=== PATIENT | female | born 1945 | race Caucasian/White ===

== ENCOUNTER 2017-06-12 17:42 | Inpatient (IN) | payer MEDICARE ==
[~2017-06-12] VITALS: Ht 162.6 cm; Wt 118.0 kg
[2017-06-12 18:22] VITALS: BP 168/81; PULSE 96; RESP 18; O2SAT 96
[2017-06-12 19:25] LABS: BASOPHILS % (AUTO) 0.2 % (0-3); EOSINOPHILS % (AUTO) 0.8 % (0-5); MONOCYTES % (AUTO) 5.4 % (4-12); Mean Corpuscular Volume 87.1 fL (81-100); NEUTROPHILS % (AUTO) 84.1 % (40-74); Platelet Count 164 bil/L (150-400)
--- NOTE | 2017-06-12 19:28 | ED.REPORT ---
HPI-Abd Pain F 40 and Over Date of Service Jun 12, 2017 ED Provider: Boo Caceres MD Patient is a 72 year old female who presents to the ED complaining of right lower quadrant abdominal pain onset two days ago. Associated symptoms include decreased appetite, an episode of diarrhea that started today and nausea last night that has since resolved. She denies vomiting, dysuria or hematochezia. Patient states that the pain is exacerbated when she walks. The patient reports that she was referred to the ED from the due to hematuria. Nursing Notes Stated Complaint: ABDOMINAL PAIN Chief Complaint: Female Abdominal Pain Nursing Notes Reviewed: Yes Allergies: Coded Allergies: Contrast Media (Verified Allergy, Mild, [place], 06/12/17) Patient not sure, but thought from IV contrast for kidney scan. Scheduled PRN Aspirin (Aspirin) 81 Mg Tablet 81 MG PO DAILY PRN PRN For Pain General Time Seen by MD: 19:27 Chief Complaint Abdominal pain Hx Obtained From: Patient Arrived By: Walk-in Sudden in Onset?: Yes Onset Occurred: 2 days ago Symptom Duration: Since onset Location: : RLQ Quality: Painful Severity: Current: Moderate Recent Healthcare: No recent doctor visit, No recent hospitalization Past Medical History Past Medical History none reported Past Surgical History Reports: Tubal ligation Smoking History Unknown if Ever Smoker Social History Other Social History: Good social support Ambulatory Status Independent Review of Systems +decreased appetite Constitutional: Denies: Chills, Fever Respiratory: Denies: Non-productive cough, Shortness of breath GI: Reports: Abdominal pain, Diarrhea, Nausea, Denies: Hematochezia, Vomiting Female: Reports: Hematuria, Denies: Dysuria, Flank pain Complete sys rev & neg: except as marked. Skin: Denies Itching, Denies Rash Physical Exam Vital Signs Vital Signs (First) Date Time Temp Pulse Resp B/P Pulse Ox O2 Delivery O2 Flow Rate FiO2 06/12/17 18:22 37.4 96 18 168/81 96 Room Air Initial VS: Reviewed General/Constitutional: Awake, Alert Respiratory / Chest: Atraumatic, Breath sounds NL, Breath sounds = bilat, No respiratory distress Cardiovascular: Heart rate NL, Regular rhythm, Heart sounds NL, No gallop, No murmurs, No rubs Abdomen: Atraumatic, Soft, No guarding, No rebound, No distention Tenderness/Guarding/Rebound: Positive: Tender RLQ... Back: Atraumatic, Non-tender no percussion flank tenderness Head / Eyes: Atraumatic, Normocephalic, PERRL, EOMI Skin: Atraumatic, Color NL, No rash, Warm, Dry Neurologic: Oriented X3, Speech NL Upper Extremity / MS: Atraumatic, Full range of motion Lower Extremity / Pelvis / MS: Atraumatic, No swelling Psychiatric: Affect NL, Mood NL Interpretation & Diagnostics Lab Results Interpretation Result Diagram: 06/12/17191906/12/171919 Test 06/12/17 19:20 White Blood Count 12.0th/mm3 (3.8-10.1) Red Blood Count 4.82mil/mm3 (3.90-5.20) Hemoglobin 14.0g/dL (12.0-15.6) Hematocrit 42.0% (35.0-46.0) Mean Corpuscular Volume 87.1fL (81-100) Mean Corpuscular Hemoglobin 29.0pg (27.0-35.0) Mean Corpuscular Hemoglobin Concent 33.3% (32.0-37.0) Red Cell Distribution Width 14.9% (12.3-15.4) Platelet Count 164bil/L (150-400) Neutrophils (%) (Auto) 84.1% (40-74) Lymphocytes (%) (Auto) 9.3% (14-46) Monocytes (%) (Auto) 5.4% (4-12) Eosinophils (%) (Auto) 0.8% (0-5) Basophils (%) (Auto) 0.2% (0-3) Sodium Level 136mEq/L (134-144) Potassium Level 3.8mEq/L (3.5-5.2) Chloride Level 99mEq/L (97-108) Carbon Dioxide Level 20mmol/L (18-29) Blood Urea Nitrogen 11mg/dL (8-27) Creatinine 0.67mg/dL (0.57-1.00) Estimat Glomerular Filtration Rate 124mL/min (>59) Glucose Level 105mg/dL (60-99) Calcium Level 9.2mg/dL (8.5-10.1) Magnesium Level 1.9mg/dL (1.6-2.6) Total Bilirubin 1.1mg/dL (0.0-1.2) Aspartate Amino Transf (AST/SGOT) 14U/L (0-50) Alanine Aminotransferase (ALT/SGPT) 11U/L (0-32) Alkaline Phosphatase 91U/L (25-165) Total Protein 7.6g/dL (6.4-8.4) Albumin 3.7g/dL (3.4-5.0) Lipase 14U/L (13-60) Hold Mendez Top Tube Received (Received) CT Abd / Pelvis Interpretation IMPRESSION: 1. Acute appendicitis with appendicolith at the base of the appendix. No pneumoperitoneum to suggest perforation. No abscess or phlegmon. This finding was discussed with Dr. Caceres 18 p.m. on 06/12/17. 2. Sigmoid colon diverticulosis. No findings to suggest acute diverticulitis. 3. Cholelithiasis. No findings to suggest choledocholithiasis or acute cholecystitis. 4. Large hiatal hernia. Dictated by: Esthela Woodard M.D. on 06/12/2017 at 20:13 Approved by: Esthela Woodard M.D. on 06/12/2017 at 20:19 Interpretation / Wet Read by: Interpret - Radiologist, Discussed w radiologist Re-Eval/Medical Decision Med Decision/Clinical Course In summary, the patient is a 72-year-old female who presents with right lower quadrant pain, nausea and decreased appetite. Here in the emergency department the patient is afebrile with stable vital signs and reproducible right lower quadrant tenderness with palpation. The patient was made nothing by mouth and treated with the below medications: IVF, Zofran, Dilaudid, LR 100mls/hour Labs: CBC: leukocytosis of 12.0 CMP unremarkable Lipase within normal limits Abdomen CT: 1. Acute appendicitis with appendicolith at the base of the appendix. No pneumoperitoneum to suggest perforation. No abscess or phlegmon. 2. Sigmoid colon diverticulosis. No findings to suggest acute diverticulitis. 3. Cholelithiasis. No findings to suggest choledocholithiasis or acute cholecystitis. 4. Large hiatal hernia. The above findings were discussed with surgery Dr. Abreu who accepted the patient for operative management. The patient remained stable and in no apparent distress. Per my discussion with Dr. Abreu antibiotics will be ordered and initiated by himself. Patient remained stable and in no apparent distress and was accepted for further management in stable condition. Re-Evaluation/Progress : Time of Eval: 20:15 Re-Evaluation/Progress Note: Discussed plan for admit. Patient understands and agrees to plan. All questions were addressed. Consultation : Referral / Consult Name: Lj Abreu MD Consulted With: Surgeon Call Returned at: 20:30 Rubber Goods Inspector: Agrees with eval, Agrees with plan, Accepts admit Counseled Regarding: Diagnosis, Lab results, Need for admission Discharge & Departure Primary Impression: Acute appendicitis Acute appendicitis type: unspecified acute appendicitis type Qualified Code: K35.80 - Unspecified acute appendicitis Additional Impressions: Right lower quadrant pain Nausea Leukocytosis Leukocytosis type: unspecified Qualified Code: D72.829 - Elevated white blood cell count, unspecified Disposition: ADMITTED TO HOSPITAL Discharge Condition All VS Reviewed: Yes Condition: Stable Referrals: Tracey Nascimento MD (PCP) Kailaibgoldie Attestation Portions of this note were transcribed by Fartun Fofana. I, Dr. Caceres personally performed the history, physical exam and medical decision-making; I reviewed and confirmed the accuracy of the information in the transcribed note. Signed by: Kristen Cagle, 06/12/17 copies to: Tracey Nascimento MD, Beck O MD Jun 12, 2017 19:28 Luci Fofana Jun 12, 2017 19:41
[2017-06-12] MEDS ORDERED: 0.9% Sodium Chloride 1,000 ML IV ONE (19:38)
[2017-06-12] MEDS ORDERED: HYDROmorphone 0.5 mg/0.5 mL iSecure Syringe IVPUSH PRN (19:40)
[2017-06-12] MEDS ORDERED: Ondansetron 2 mg/mL 2 mL Inj IVPUSH ONE (19:40)
[2017-06-12 19:45] LABS: Magnesium 1.9 mg/dL (1.6-2.6)
[2017-06-12] MEDS: Lactated Ringer's 1,000 ML IV SCH (20:20)
--- NOTE | 2017-06-12 20:20 | DRSVH ---
PROCEDURE: CT ABDOMEN AND PELVIS WITHOUT CONTRAST ([id number]) INDICATIONS: rlq pain TECHNIQUE: Noncontrast 5 mm thick sections acquired from the diaphragms to the symphysis. 5 mm coronal and sagi ttal reformats were then performed. For radiation dose reduction, the following was used: automated exposure control, adjustment of mA and/or kV according to patient size. COMPARISON: None. FINDINGS: Image quality: Excellent. ABDOMEN: Lung bases: Lung bases are clear. Heart size is normal. There is a large hiatal hernia which conta ins mesenteric fat and the proximal half of the stomach. Solid organs: Liver and spleen are normal in size. There are multiple calcified gallstones in the ga llbladder fundus, the largest of which measures 1.8 cm in diameter. No gallbladder wall thickening or pericholecystic fluid. The body of the pancreas demonstrates fatty atrophy. No adrenal nodules. Kid neys are normal in size, without hydronephrosis or nephrolithiasis. Peritoneum and bowel: Unenhanced bowel loops demonstrate normal wall thickness and caliber. The appe ndix is thick walled. An appendicolith is present at the base (series 2, image 63). There is periappe ndiceal fluid and fat stranding. No pneumoperitoneum. No organized abscess or phlegmon. There is exte nsive sigmoid colon diverticulosis. No discrete mucosal thickening to suggest acute diverticulitis. N o free fluid or air. Nodes and vessels: No retroperitoneal or mesenteric adenopathy by size criteria. Aorta and inferior vena cava are normal in caliber. Miscellaneous: No ventral hernias. PELVIS: Genitourinary: Bladder wall thickness is normal. Uterus and ovaries are grossly unremarkable. Miscellaneous: No inguinal hernias or adenopathy. Bones: No suspicious bony lesions. No vertebral body compression fractures. IMPRESSION: 1. Acute appendicitis with appendicolith at the base of the appendix. No pneumoperitoneum to suggest perforation. No abscess or phlegmon. This finding was discussed with Dr. Caceres 18 p.m. on 06/12/17. 2. Sigmoid colon diverticulosis. No findings to suggest acute diverticulitis. 3. Cholelithiasis. No findings to suggest choledocholithiasis or acute cholecystitis. 4. Large hiatal hernia. Dictated by: Esthela Woodard M.D. on 06/12/2017 at 20:13 Approved by: Esthela Woodard M.D. on 06/12/2017 at 20:19
[2017-06-12] MEDS ORDERED: Ampicillin-Sulbactam Inj 3,000 MG in 0.9% Sodium Chloride 100 ML IV ONE (21:05)
[2017-06-12 21:45] VITALS: BP 122/41; PULSE 95; RESP 18; O2SAT 94
[2017-06-12 22:48] VITALS: BP 128/80; PULSE 95; RESP 18; O2SAT 94
--- NOTE | 2017-06-12 22:49 | NUR ---
Admit Pt arrived onto unit from ED after report from Orlando Cam RN and was able to ambulate from rney to bed without SOB. Pain 4/10 in lower abdomen. A&O x 3. Awaiting surgery this evening. Lung sounds clear. No nausea, SOB, or chest pain present. Oriented to room, call light, TV, etc. All needs met at this time. Frequent rounding continues.
[2017-06-12] MEDS ORDERED: ASPI-973 PO (22:57)
[2017-06-12] MEDS ORDERED: Lactated Ringer's 1,000 ML IV SCH (23:36)
[2017-06-12] MEDS ORDERED: Lactated Ringer's 500 ML IV PRN (23:36)
[2017-06-12] MEDS ORDERED: hydrALAZINE 20 mg/mL Inj IVPUSH PRN (23:40)
[2017-06-12] MEDS ORDERED: Labetalol 5 mg/mL 20 mL Inj IV PRN (23:40)
[2017-06-12] MEDS ORDERED: EPHEDrine Sulfate 50 mg/mL Inj IVPUSH PRN (23:40)
[2017-06-12] MEDS ORDERED: HYDROmorphone 1 mg/mL Inj IVPUSH PRN (23:40)
[2017-06-12] MEDS ORDERED: fentaNYL-PF 50 mCg/mL 2 mL Inj IVPUSH PRN (23:40)
[2017-06-12] MEDS ORDERED: Ondansetron 2 mg/mL 2 mL Inj IVPUSH PRN (23:40)
[2017-06-12] MEDS ORDERED: Phenylephrine 10,000 mCg/mL Inj IVPUSH PRN (23:40)
[2017-06-12] MEDS ORDERED: Atropine 0.4 mg/mL Inj IVPUSH PRN (23:40)
[2017-06-12] MEDS ORDERED: MetoCLOpramide 5 mg/mL 2 mL Inj IVPUSH PRN (23:40)
--- NOTE | 2017-06-12 23:42 | NUR ---
PT off unit Pt taken to OR approx 2342 for appy. Family staying in patient room for when she returns.
--- NOTE | 2017-06-12 23:47 | HP ---
[address] [address] HISTORY AND PHYSICAL PATIENT: JANNIE MALAGON : 1945 MR#: [id number] ADMIT: 06/12/2017 JOB ID: [id number] CHIEF COMPLAINT AND IDENTIFICATION: A 72-year-old woman with probable appendicitis. HISTORY OF PRESENT ILLNESS: Patient has had two days of right lower quadrant pain with increasing pain, decreased appetite, some loose stool and nausea but no vomiting. She has been reported to have microscopic hematuria. PAST MEDICAL HISTORY: 1. Tubal ligation. 2. Obesity. MEDICATIONS: Daily aspirin. She also notes she has taken several additional 81 mg aspirin today due to pain. ALLERGIES: IV CONTRAST DYE. SOCIAL HISTORY: Negative tobacco. Negative daily alcohol. She lives with her . She is seen in the emergency department with multiple family members. FAMILY HISTORY: Noncontributory. REVIEW OF SYSTEMS: Negative per Dr. Caceres's report. PHYSICAL EXAMINATION: BMI is 44. Vital signs are recorded in the chart, within normal limits except for one oral temperature of 38. Initial blood pressure was high at 168/81, but her most recent blood pressure was 120/80. Pulses have been in the 90s. Room air saturation is 94% to 96%. Her sclerae are clear. Neck is supple. Lungs are clear. Heart sounds are regular. Abdomen is soft with some mild right lower quadrant tenderness to palpation. Rectal/pelvic is not performed. Extremities without edema. LABORATORIES: Show white count 12, hematocrit of 42. Chemistries normal. Glucose is 105. LFTs and lipase are normal. IMAGING: I reviewed her abdominal CT and I concur with the report findings consistent with acute appendicitis with an appendicolith, asymptomatic diverticulosis, cholelithiasis and hiatal hernia. IMPRESSION AND PLAN: Probable appendicitis. I have recommended that we move ahead with a laparoscopic appendectomy tonight. She is amenable to proceeding after informed consent. We will do that tonight.
[2017-06-12 23:50] LABS: APPEARANCE,URINE CLOUDY (CLEAR,HAZY); COLOR,URINE ORANGE (YELLOW); OCCULT BLOOD,URINE LARGE (NEGATIVE); UROBILINOGEN,URINE 8 mg/dL (NORMAL)
[2017-06-12] MEDS ORDERED: Glycopyrrolate 0.2 MG/ML 1mL Inj ONE (23:55)
[2017-06-12] MEDS ORDERED: Dexamethasone 4 mg/mL Inj ONE (23:55)
[2017-06-12] MEDS ORDERED: Phenylephrine 10,000 mCg/mL Inj ONE (23:55)
[2017-06-12] MEDS ORDERED: Rocuronium 10 mg/mL 5 mL Inj ONE (23:55)
[2017-06-12] MEDS ORDERED: Propofol 10 mg/mL 20 mL Inj ONE (23:55)
[2017-06-12] MEDS ORDERED: fentaNYL-PF 50 mCg/mL 20 mL Inj ONE (23:55)
[2017-06-12] MEDS ORDERED: Ondansetron 2 mg/mL 2 mL Inj ONE (23:55)
[2017-06-12] MEDS ORDERED: Neostigmine 1 mg/mL 10 mL Inj ONE (23:55)
[2017-06-13] VITALS (13 sets, daily range): BP systolic 99–147; BP diastolic 56–89; PULSE 69–95; RESP 13–25; O2SAT 92–98
[2017-06-13] MEDS ORDERED: Bupivacaine-MPF 0.5% 30 mL Inj INFILTRATE ONE (00:29)
[2017-06-13] MEDS: Lactated Ringer's 1,000 ML IV SCH ×5 (00:30→16:20)
--- NOTE | 2017-06-13 00:59 | PCM.ANEP1 ---
Post Anesthesia PACU Phase 1 Assessment Date of Service: Jun 13, 2017 Vital Signs 36.4 115/58 91 21 97% FM Anesthetic Administered: GA Level of Alertness: Sleeping, hard to arouse BARRERA's with Equal Strength: Yes Pain: No Nausea or Vomiting: No CV Function & Hydration Stable: Yes Airway Device: Oxygen Delivery: Simple Mask Lungs: Clear to Auscultation PACU Phase 2 Assessment Complications: No Follow up Care: N/A Patient Instructions Provided: N/A Alex Farmer MD Jun 13, 2017 00:59
[2017-06-13] MEDS ORDERED: HYDROmorphone 0.5 mg/0.5 mL iSecure Syringe IV PRN (01:00)
[2017-06-13] MEDS ORDERED: Ondansetron 2 mg/mL 2 mL Inj IVPUSH PRN (01:00)
[2017-06-13] MEDS ORDERED: diphenhydrAMINE 25 mg Capsule PO PRN (01:00)
[2017-06-13] MEDS: Acetaminophen IV 1,000 MG in IV Premix 1 EACH IV PRN ×3 (02:40→16:35)
--- NOTE | 2017-06-13 02:40 | OP ---
[address] [address] OPERATIVE REPORT PATIENT: JANNIE MALAGON : 1945 MR#: [id number] ADMIT: 06/12/2017 JOB ID: [id number] DATE OF SURGERY: 06/13/2017 PREOPERATIVE DIAGNOSIS(ES): Acute appendicitis. POSTOPERATIVE DIAGNOSIS(ES): Acute appendicitis with perforation. PROCEDURE: Laparoscopic appendectomy for perforated appendicitis. SURGEON: Lj Abreu MD. TRAFFIC CONTROL OFFICER: Florian Renteria PA-C. INDICATIONS: A 72-year-old female with a body mass index of 45, presents with signs and symptoms consistent with appendicitis. She is brought to the operating room for laparoscopic appendectomy. FINDINGS: 1. commercial assistant was medically necessary due to the patient's morbid obesity and age for efficient and safe performance of surgery. 2. The patient had perforated appendicitis as described below. PROCEDURE: The patient was brought to the operating room. General anesthetic was administered. SCOAP protocol was followed. She received perioperative Augmentin. Surgical time-out was performed. The abdomen was prepped and draped in sterile fashion. We obtained access with an optical trocar inserted directly into the abdomen, followed by insufflation. The abdomen was surveyed. 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 We placed two additional ports, including placing the 12 mm stapler port in the upper abdomen within the rectus sheath. I took down some of the congenital adhesions to the right colon and then we attacked the area that appeared to be a fold of Treitz that was sealed over some purulent material. We suctioned out the purulent material to avoid diffuse spillage. We found a small appendicolith that had come out through the appendix wall into the peritoneal cavity. This confirmed the diagnosis of perforated appendicitis. We suctioned that out. We now proceeded to the bluntly mobilize the appendix and created a window at the base of the appendix which was relatively soft. We fired the stapler across this with a blue load and then performed a retrograde appendectomy taking down the mesoappendix bluntly and with cautery fairly midway between the appendix and the origin of the mesoappendix. This was done in a safe fashion so that we would not injure any structures in the retroperitoneum, nor disrupt the wall of the appendix. The specimen was freed up and placed in a sac and removed through the 12 mm upper abdominal port without wound contamination. At this point, because we could visualize this wound, I did place 0-Vicryl suture with a suture passing device and that we would later used to close this fascial defect. We now proceeded to irrigate out the area of dissection and inspect it. Hemostasis was good. We suctioned out all the pus and any solid material that we could find. The staple line was intact. After appropriate irrigation we suctioned out all of our irrigation and placed a 19-Romanian round drain curling down to the pelvis with the tip at the site of the perforated appendicitis. This was brought out through the lower 5 mm wound and secured with a nylon suture. We now removed our ports under laparoscopic vision, tied the previously placed fascial closing suture, and closed the two skin incisions with Vicryl, used the nylon to secure the drain with a 3rd incision. Patient tolerated the procedure well. At the time of this dictation is awakened from anesthesia and in the recovery room.
[2017-06-13] MEDS: Piperacillin-Tazo 3.375 Gm Inj 3.375 GM in Dextrose 5% Minibag Plus 50 ML IV SCH ×3 (03:20→17:09)
--- NOTE | 2017-06-13 03:41 | NUR ---
Pt back from surgery Pt returned from PACU approx 0140 via RA angela, A&O, VSS, Pain 2/10, no nausea. Settled patient back into bed and resumed fluids after assessment. IV Tylenol given when pain started to climb and then Abx administered.
--- NOTE | 2017-06-13 10:06 | PCM.HPANE ---
Patient Data Date of Service: Jun 12, 2017 Surgeon Admitting Provider:jL Abreu MD Attending Provider:Lj Abreu MD Primary Care Physician:Tracey Nascimento MD Other Provider: Reason for Visit Acute Appy Ht/WT & BMI Height (Feet): 5 Height (Inches): 4.00 Weight (Kilograms): 118.000 Body Mass Index 44.41 Allergies Coded Allergies: Contrast Media (Verified Allergy, Mild, [place], 06/12/17) Patient not sure, but thought from IV contrast for kidney scan. Past Anesthesia History Anesthesia History: Denies:: Anesthesia Reactions Diabetes History Hx Diabetes?: No MRSA MRSA: No Medications Hypertension Medication: No Home Meds Incl Beta Hebert: No Reported Medications Aspirin 81 Mg [id number] Mg PO DAILY PRN For Pain Ref 0 06/12/17 History History of ENT Problems?: No HEENT History: Denies:: Difficult Intubation Denture Type: None Teeth Condition: Tooth Decay Missing Teeth Hx of Heart Problems?: Yes Cardiovascular History: Positive for:: Hypertension Denies:: Cardiac Surgery Chest Pain Congestive Heart Failure Edema Heart Murmur Irregular Heartbeat Pacemaker Thrombophlebitis Hx of Respiratory Problem?: No Respiratory History: Denies:: Tuberculosis Hx Neurologic Problems?: Yes Neurological History: Positive for:: Dizziness (Occasional) Denies:: Alzheimer's Disease CVA Dementia Headaches Parkinson's Disease Seizures Hx of GI Problems?: Yes Hx of Problems?: Yes Genitourinary History: Positive for:: Urinary Tract Infection Denies:: HX of Hemodialysis Kidney Stones HX of Peritoneal Dialysis: No Female Hx: Denies:: Currently Endometriosis Pelvic Inflammatory Problems with Breasts? Hx Musculoskeletal Problems?: No Musculoskeletal History: Denies:: Back Injury Joint Replacement Musculoskeletal Trauma Hx of Psycho/Social Problems?: No Hx Surgeries?: Yes (Tubes tied ) Hx Any Other Health Problems?: No Other History: Denies:: Cancer Hospitalization Thyroid Disease Hx Diabetes: No Hx Alcohol Use: Yes (OCCASIONAL)Hx Substance Use: No Smoking Status: Unknown if Ever Smoker Stop/Bang Treated for Sleep Apnea?: No Do You Have a CPAP Machine?: No S-Snoring: Do You Snore Loudly: No T-Tired: feel tired, fatigued: No O-Obsered: Observed not breath: No P-Blood Pressure: treated: Yes B- Body Mass Index > 35 kg/m2: Yes A- Age over 50: Yes N- Neck Large Circumference: No G- Gender Male: No BENIGNO Total Score: 3 BENIGNO Risk Assessment: Low Risk, <3 Yes Risk Assessment Category Category 1A: Patient has history of documented sleep apnea, and HAS NOT received any narcotic, sedative or anesthesia administration during this stay. Category 1B: Patient has history of documented sleep apnea, and HAS received any narcotic , sedative or anesthesia administration during this stay Category 2: Patient has SUSPECTED Obstructive Sleep Apnea, and HAS received any narcotic , sedative or anesthesia administration during this stay. Category 3: Patient has SUSPECTED Obstructive Sleep Apnea and HAS NOT received narcotic, sedative or anesthesia administration during this stay. Category 4: Outpatient in Procedural Areas with known sleep apnea or who screen positive for High Risk via the STOP/BANG questionnaire. Exam Exam Vital Signs Vital Signs Date Time Temp Pulse Resp B/P Pulse Ox O2 Delivery O2 Flow Rate FiO2 06/12/17 22:48 37.1 95 18 128/80 94 Room Air 06/12/17 21:45 38 95 18 122/41 94 Room Air 06/12/17 18:22 37.4 96 18 168/81 96 Room Air General Appearance: Alert, Oriented X3, Cooperative, No Acute Distress HEENT/AIRWAY: MP 3, Neck Movement (normal) Lungs: Clear to Auscultation, Normal Air Movement Heart: Exam Unremarkable, Regular Rate/Rhythm, No Murmurs/Rubs/Gallops Meds/Labs/Diagnostics Admission Meds Current Medications Sodium Chloride (Normal Saline) 1,000 ml @ 0 mls/hr Q0M ONCE IV Last administered on 06/12/17 20:37; Start 06/12/17 at 19:38; Stop 06/12/17 at 19:40 ; Status DC Ondansetron HCl (Zofran Inj) 4 mg ONCE ONCE IVPUSH Last administered on 20:38; Start 06/12/17 at 19:40; Stop 06/12/17 at 19:41; Status DC Labs Test 06/12/17 19:20 06/12/17 23:00 White Blood Count 12.0th/mm3 (3.8-10.1) Red Blood Count 4.82mil/mm3 (3.90-5.20) Hemoglobin 14.0g/dL (12.0-15.6) Hematocrit 42.0% (35.0-46.0) Mean Corpuscular Volume 87.1fL (81-100) Mean Corpuscular Hemoglobin 29.0pg (27.0-35.0) Mean Corpuscular Hemoglobin Concent 33.3% (32.0-37.0) Red Cell Distribution Width 14.9% (12.3-15.4) Platelet Count 164bil/L (150-400) Neutrophils (%) (Auto) 84.1% (40-74) Lymphocytes (%) (Auto) 9.3% (14-46) Monocytes (%) (Auto) 5.4% (4-12) Eosinophils (%) (Auto) 0.8% (0-5) Basophils (%) (Auto) 0.2% (0-3) Sodium Level 136mEq/L (134-144) Potassium Level 3.8mEq/L (3.5-5.2) Chloride Level 99mEq/L (97-108) Carbon Dioxide Level 20mmol/L (18-29) Blood Urea Nitrogen 11mg/dL (8-27) Creatinine 0.67mg/dL (0.57-1.00) Estimat Glomerular Filtration Rate 124mL/min (>59) Glucose Level 105mg/dL (60-99) Calcium Level 9.2mg/dL (8.5-10.1) Magnesium Level 1.9mg/dL (1.6-2.6) Total Bilirubin 1.1mg/dL (0.0-1.2) Aspartate Amino Transf (AST/SGOT) 14U/L (0-50) Alanine Aminotransferase (ALT/SGPT) 11U/L (0-32) Alkaline Phosphatase 91U/L (25-165) Total Protein 7.6g/dL (6.4-8.4) Albumin 3.7g/dL (3.4-5.0) Lipase 14U/L (13-60) Hold Mendez Top Tube Received (Received) Plan Impression Patient chart reviewed, patient interviewed and anesthestic plan with risks, benefits, and alternatives discussed, and informed consent obtained. NPO per Anesth. Guidelines: Yes ASA Physical Status: ASA3 Severe Disease Anesthetic Plan: GA Bene/Risks/Altern/Consents: Yes HP Complete Prior to Induction: Yes Alex Farmer MD Jun 12, 2017 23:35
--- NOTE | 2017-06-13 14:11 | NUR ---
Social Work: Initial Assessment/Readiness for D/C D: EMR reviewed. Please see Initial Assessment linked to this note for more information. Pt is a 72 year old female admitted [place] for acute appy per H&P. Pt's readmit risk score is not listed at this time. Pt discussed in multidisciplinary rounds, pt is POD 0, anticipated to d/c tomorrow. No SW orders have been received. Pt's insurance is Medicare. PCP is Tracey Nascimento MD. SW met with pt, , and family at bedside to conduct initial assessment. Pt was alert and oriented x3. Pt's capacity for self-care assessed. SW explained role and wrote phone number on white board. SW provided [facility] Discharge Planning Checklist and encouraged pt to contact SW for any discharge planning questions. Pt resides at home with her near [place] where she is independent with ADLs and self-care. Pt uses no DME at baseline but has a cane available for use. Pt drives. Pt has no HH or SNF history. No LTC or VA benefits. Pt declined DPOA information stating that her will make medical decisions if needed. Pt's to provide transportation home at d/c. No anticipated discharge needs identified. SW will continue to follow. A: Pt who is independent at baseline and has the capacity for self-care. P: Pt anticipated to discharge home with to transport via POV. No SW needs identified, no MD orders received. SW will continue to follow for needs until time of discharge. ZECHARIAH Larsen Addendum: 06/13/17 at 1415 by LESLEY TAYLOR Amended: Links added.
--- NOTE | 2017-06-13 14:34 | PROG NOTE ---
[address] [address] PROGRESS NOTE PATIENT: JANNIE MALAGON : 1945 MR#: [id number] ADMIT: 06/12/2017 JOB ID: [id number] DATE: 06/13/2017 SUBJECTIVE: Postop day one laparoscopic appendectomy. She remains afebrile, tolerating liquids, and her incisions are clean, with the dressings intact. Fernie-Carrillo drain is serous and has put a small amount out postop. I did not repeat her white count today. IMPRESSION AND PLAN: Perforated appendicitis, status post laparoscopic appendectomy. We will continue intravenous Zosyn, check a CBC tomorrow. If her white count is within normal limits. We will switch her over to oral antibiotics and she will be able to go home with a seven-day course of p.o. Augmentin. If the drainage remains low and serous in nature, the drain can come out tomorrow.
--- NOTE | 2017-06-13 18:00 | NUR ---
Mobility/pain Pt able to amb 3x this shift. 1 small loop and 2 large loops. Pain controlled with tylenol IV. Had occas sharp pains at DOMINGO site.
[2017-06-14] MEDS: Lactated Ringer's 1,000 ML IV SCH ×2 (02:05→02:06)
[2017-06-14] MEDS: Piperacillin-Tazo 3.375 Gm Inj 3.375 GM in Dextrose 5% Minibag Plus 50 ML IV SCH ×2 (02:05→09:17)
--- NOTE | 2017-06-14 03:58 | NUR ---
Activity Patient A&OX3 and pleasant this evening. Up ambulating this evening in the hallway with . SBA to the bathroom to assist with IV line and SCDs, otherwise patient is very steady on feet. Complains of some pain in RLQ but has not requested any pain medication at this time. DOMINGO drain has had minimal sero-sang output this evening. Lap dressing sites are C/D/I. Will continue to monitor and continue Q1 hour checks.
[2017-06-14 04:59] VITALS: BP 125/79; PULSE 70; RESP 18; O2SAT 95
[2017-06-14 06:39] LABS: BASOPHILS % (AUTO) 0.1 % (0-3); EOSINOPHILS % (AUTO) 1.8 % (0-5); MONOCYTES % (AUTO) 6.8 % (4-12); Mean Corpuscular Hemoglobin 28.4 pg (27.0-35.0); Mean Corpuscular Volume 87.9 fL (81-100); NEUTROPHILS % (AUTO) 77.1 % (40-74); Platelet Count 186 bil/L (150-400)
[2017-06-14 09:24] VITALS: BP 123/78; PULSE 74; RESP 18; O2SAT 94
--- NOTE | 2017-06-14 11:24 | PCM.PNSURG ---
Subjective Date of Service: Jun 14, 2017 Date of Service: Jun 14, 2017 Visit Information: Reason for Visit Acute Appy Surgery/Surgery Date lap appy 06/12/17 Post-Op Day # 2 Status Post laparoscopic appendectomy for acute perforated appendicitis Date of Admission: Jun 12, 2017 at 21:48 Hospital Day # 3 Subjective: Patient denies significant related pain, nausea, or vomiting; tolerating normal diet & is passing flatus. She is has been ambulating in the [place], voiding regularly & would like to go home today. Gastrointestinal: Good Appetite, Tolerating Oral Feedings, No N/V, Passing Flatus Pain Management: Good Pain Control, No or Minimal Pain Postop Activity: Ambulating Independently Objective Vital Sign- Last 8 Hours Date Time Temp Pulse Resp B/P Pulse Ox O2 Delivery O2 Flow Rate FiO2 06/14/17 09:24 36.3 74 18 123/78 94 Room Air 06/14/17 04:59 37.0 70 18 125/79 95 Room Air Intake and Output- Last 8 Hour 06/14/17 Cumulative From/Thru 07:00 06/12/17 00:30 - 06/14/17 05:53 Intake Total 793 ml 4558 ml Output Total 1320 ml 3255 ml Balance -527 ml 1303 ml Intake Oral 600 ml 2480 ml IV Total 193 ml 2078 ml Output Urine Total 1320 ml 3170 ml Drainage Total 80 ml Estimated Blood Loss 5 ml # Bowel Movements 0 General: Alert, Cooperative, No Acute Distress Lungs: Clear to Auscultation Heart: Exam Unremarkable Abdomen: Benign, Appropriately tender, Non-distended SURGICAL WOUND : Wound General Appearence: Steri Strips, Intact, Well Approximated, No Erythema, No Discharge, No Inflammatory Changes Dressing & Drainage Status: Intact Wound Drainage Type: DOMINGO Drain #1 (20 ml of serosanguineous over the last 8 hours) Extremities: Thigh&Calf Soft/Nontender Neuro: Normal Speech Result Diagram: 06/14/17 0625 06/12/17 1920 Assessment & Plan Impression Primary Diagnoses: 1. Acute perforated appendicitis 2. Status post laparoscopic appendectomy: Resolved leukocytosis, minimal DOMINGO serosanguineous output & stable. Other Medical & Surgical History: Tubal ligation Obesity Dysuria Dysuria Problems: Plan 1. DOMINGO drain removed. 2. Discharge home today with instructions & prescriptions for analgesics, stool softeners, & 7 days augmentin 3. Follow-up in Outpatient General Surgery Clinic in 1 Week with prior CBC & CMP Pain Management: PO APAP VTE Prophylaxis: SCDs copies to: Tamra Velasco Scott PA-C Jun 14, 2017 11:24
--- NOTE | 2017-06-14 11:37 | NUR ---
Social Work: Discharge D: EMR reviewed. Pt is a 72 year old female admitted [place] for acute appy per H&P. Pt discussed in multidisciplinary rounds, pt to discharge today. Discharge orders are active. Pt is independent at baseline. Pt to d/c home with her to transport via POV. No SW needs. A: Pt who is independent at baseline and has the capacity for self-care. P: Pt to discharge home with to transport via POV. No SW needs identified, no MD orders received. Eloina Smart MSW
--- NOTE | 2017-06-14 11:39 | PCM.DISURG ---
Surgical Discharge Instruction Date of Service Jun 14, 2017 Dates of Hospitalization Date of Hospital Admission Jun 12, 2017 at 21:48 Providers Admitting Physician: Lj Abreu MD Primary Care Physician: Tracey Nascimento MD Attending Physician: Lj Abreu MD Discharge Diagnosis Discharge Diagnosis Primary Diagnoses: 1. Acute perforated appendicitis 2. Status post laparoscopic appendectomy Other Medical & Surgical History: Tubal ligation Obesity Dysuria Post Operative diagnosis SAME Diet Discharge Diet: No restrictions Activity Discharge Activity-General: Activity as pain allows, No lifting >15 pounds for 2 weeks Dressing and Incisional Care Dressing Care: Allow Steri Stripes to fall off (or remove in 1 week.) Hygiene: May shower Additional Instructions Discharge Instructions Take one week of Augmentin by mouth as directed & get blood drawn (CBC & CMP) before first postop appointment. Follow Up Plan Follow-up Provider (F9): Maria Dolores Shrestha PAC Follow-up appointment: Weeks (1) Call your provider for: Fever, Chills, Shortness of breath, Increasing abdominal pain, Nausea, Vomiting, Wound redness, Increasing wound pain, Warmth to touch, Discharge @ incision, pus discharge Kiran Gannon PA-C Jun 14, 2017 11:39
[2017-06-14] MEDS ORDERED: POLY17PO6 PO (11:41)
[2017-06-14] MEDS ORDERED: AMOX-366 PO (11:42)
[2017-06-14 11:43] VITALS: BP 134/83; PULSE 68; RESP 18; O2SAT 95
[2017-06-14] MEDS ORDERED: OXYC5TAB72 PO (11:46)
--- NOTE | 2017-06-14 11:53 | PCM.DC.SUR ---
Discharge Summary Date of Service: Jun 14, 2017 Date of Hospital Admission: Jun 12, 2017 at 21:48 Date of Operation(s): 06/13/2017 Date of Discharge: 06/14/2017 Diagnosis at Time of Discharge Primary Diagnoses: 1. Acute perforated appendicitis 2. Status post laparoscopic appendectomy Other Medical & Surgical History: Tubal ligation Obesity Dysuria Problems: Operation Laparoscopic appendectomy Brief History and Physical: Patient has had two days of right lower quadrant pain with increasing pain, decreased appetite, some loose stool and nausea but no vomiting. She has been reported to have microscopic hematuria. Hospital Course: The patient was admitted with a history: Presentation, & workup consistent with the above diagnosis and underwent the above mentioned surgical procedure without complication. See operative report for details of the procedure. After surgery the patient convalesced appropriately. Her postsurgical recovery was uneventful. Bowel function returned on postoperative day #1. The patient was afebrile & stable for discharge on postoperative day #2. At the time of discharge the patient was voiding without difficulty, passing gas, tolerating a normal diet without nausea or vomiting, her pain was controlled adequately with minimal analgesics, she was ambulating without assistance, wounds were clean, dry, intact, without signs of significant infection, inflammation, &/or hematoma. Her DOMINGO drain output was only minimal serosanguineous fluid over the previous shift and her leukocytosis had resolved with over 24 hours of IV antibiotics. Discussed and the patient verbalized understanding all postoperative care, and medication instructions, follow-up, and once each immediate medical attention. All questions were answered. The patient was given prescriptions for stool softeners, by mouth analgesics, &'s 1 week of oral antibiotics. Pathology: Pending Disposition: In stable condition on postoperative day #2 Follow-up Plan: Follow-up with physician mail handler assistant in outpatient general surgery clinic in 1 week for wound check evaluation of postoperative CBC, & CMP. Amoxicillin/Clav K 875-125 mg (Augmentin 875-125 mg) 1 Each Tablet 1 TABLET PO BID Aspirin (Aspirin) 81 Mg Tablet 81 MG PO DAILY PRN PRN For Pain (Reported) Polyethylene Glycol 3350 (Miralax) 17 Gm Powd.pack 17 GM PO ASDIRECTED oxyCODONE (oxyCODONE) 5 Mg Tablet 5 MG PO QID PRN PRN For Severe Pain Discharge Medications: See above copies to: Tamra Velasco Scott PA-C Jun 14, 2017 11:53
--- NOTE | 2017-06-14 15:46 | NUR ---
Discharge Pt d/c at 1257 w/ , walked self out. Time taken to go over d/c plan and f/u instructions, reinforced teaching about postop care and what to be aware of. Pt given handouts regarding this information as well. Pt and felt comfortable w/ plan to f/u w/ general surgery on 06/23 appointment and know to call w/ any complications. Pt had no further questions or concerns upon d/c. It was a pleasure to take care of this pt.
== END 2017-06-14 12:57 | disposition home or self-care (01) | DRG 339 ==
LOC: SED 17:42 → OBSVTOIN 21:48 → OSC 21:48
PROVIDERS: ADMIT Surgery; ATTEND Surgery
PROC: 0DTJ4ZZ Resection of Appendix, Percutaneous Endoscopic Approach (ICD-10-PCS; principal; 2017-06-13)
DX: K35.2 Acute appendicitis with generalized peritonitis (principal); Z68.41 Body mass index [BMI] 40.0-44.9, adult; E66.01 Morbid (severe) obesity due to excess calories; K57.30 Diverticulosis of large intestine without perforation or abscess without bleeding; K44.9 Diaphragmatic hernia without obstruction or gangrene; Z79.82 Long term (current) use of aspirin